=== PATIENT | male | born 1965 | race Caucasian/White ===

== ENCOUNTER 2021-07-22 08:30 | Emergency (ER) | payer MEDICAID, SELFPAY ==
[2021-07-22 08:40] VITALS: BP 185/119; PULSE 83; RESP 20; O2SAT 97; BMI 21.7
--- NOTE | 2021-07-22 08:56 | W.ED.GENADLT ---
Documented by User: ARSENIO Chowdhury 07/22/21 10:15 HPI - General Adult General: Chief complaint: General Medical Stated complaint: JAW & R SIDE HEAD PAIN Time Seen by Provider: 07/22/21 08:48 History of Present Illness: HPI narrative: Patient complains about dental pain. Says heat and cold bothers his lower molar area he has very poor teeth lots of caries and he has been told he needs to have them removed. Patient says it has been going on for about a week and is progressively got worse. He says blood pressure normally under good control. He was saw by Dr. Manzo last week and blood pressure evaluated and neck spasms also. Said neck spasms better but tooth is causing him considerable discomfort. MD complaint: Dental caries Onset (ago): day(s) Associated symptoms: Reports no associated symptoms; Deny chest pain, headache(s), rash or vomiting Review of Systems Const: Denies: fever(s), chills or body aches Eyes: Denies: eye discharge ENMT: Reports: dental pain; Denies: throat pain, oral sores or nasal congestion Card: Reports: other (History of hypertension controlled); Denies: chest pain or dyspnea on exertion Resp: Reports: non-productive cough; Denies: wheezing or stridor GI: Denies: vomiting or diarrhea : Denies: difficulty urinating Musc: Denies: extremity pain Skin/Breast: Denies: rash Neuro: Denies: headache(s) Psych: Denies: anxiety or depression Eliezer/Lymph: Denies: easy bruising Physical Exam Const: COMMON NORMALS: no acute distress GENERAL APPEARANCE: cooperative HENMT: COMMON NORMALS: TM's normal bilaterally and Normal external nose present FACE & SINUS: normal facial exam NOSE: Normal external nose present TYMPANIC MEMBRANE: TM's normal bilaterally MOUTH: Normal oral and palatal mucosa present TEETH & GINGIVA: Yes caries (Multiple throughout mouth, most teeth have black craters) and Yes other (Tender to right lower molar on the outer aspect no abscess) Neck/C-Spine: COMMON NORMALS: full ROM, no lymphadenopathy and supple Resp: COMMON NORMALS: normal respiratory effort Cardio: COMMON NORMALS: regular rate and regular rhythm RATE: regular rate RHYTHM: regular rhythm Psych: COMMON NORMALS: mental status grossly normal Course Vital Signs: Vital signs: Vital Signs Pulse Rate 79 07/22/21 09:07 Respiratory Rate 16 07/22/21 09:07 Blood Pressure 168/121 07/22/21 09:07 Pulse Oximetry 98 07/22/21 09:07 MDM - General Adult MDM Narrative: Medical decision making narrative: Patient presents with multiple dental caries. Has had right lower molar pain x1 week. Patient states that it has not improved and is worsening. Has had multiple problems with teeth over the years and cannot afford to get them pulled. And has severe anxiety related to Best. Blood pressure normally under good control and was just seen by Dr. Manzo last week. Patient states blood pressures up due to his teeth hurting. He declines any intervention for his hypertension. Patient states he has been up all night due to his pain and that is why his pressure is up and he said it was fine yesterday. Patient does not want any narcotics for pain control because of past problem with addiction. Denies any other current problems. Patient was given strict instructions to follow-up here or his primary care provider concerning his blood pressure if it does not come down to the what his normal pressure is. Patient agrees to plan. Discharge Plan Discharge Patient Disposition: Home Clinical Impression: Dental caries HTN (hypertension) Qualifiers: Hypertension type: primary hypertension Qualified Code(s): I10 - Essential (primary) hypertension Condition: Stable Prescriptions: New clindamycin HCl 300 mg capsule 300 mg PO Q8H 7 Days Qty: 21 RF: 0 Celebrex 100 mg capsule 100 mg PO BID Qty: 20 RF: 0 Discharge Orders: Discharge ED (Routine); Ordered 07/22/21 Ordered By: Blaine Gomez Referrals: Justin Manzo MD [Physician] - Discharge Diet: Usual diet Discharge Activity: Resume usual activity Patient Instructions: Dental Caries (Cavities), Chronic Hypertension (ED) Activity Restrictions/Additional Instructions: Follow-up with medical provider as directed. Take medications as prescribed. Return to the ER or your medical provider if condition worsens. Please read and understand discharge instructions. If any questions ask please. Try to establish with dentist as soon as possible to get teeth removed. Monitor blood pressure daily basis and continue take medication. Coding Level of Care Code ED Independent Living Specialist for Chg Fwd Exam Detailed Documented by User: Preston Dumont DO 07/22/21 14:15 HPI - General Adult General: Chief complaint: General Medical Stated complaint: JAW & R SIDE HEAD PAIN Time Seen by Provider: 07/22/21 08:48 Course Vital Signs: Vital signs: Vital Signs Pulse Rate 79 07/22/21 09:07 Respiratory Rate 16 07/22/21 09:07 Blood Pressure 168/121 07/22/21 09:07 Pulse Oximetry 98 07/22/21 09:07 MDM - General Adult MDM Narrative: Medical decision making narrative: Chart reviewed and patient discussed with midlevel. Agree with assessment and plan. Discharge Plan Discharge Patient Disposition: Home Clinical Impression: Dental caries HTN (hypertension) Qualifiers: Hypertension type: primary hypertension Qualified Code(s): I10 - Essential (primary) hypertension Condition: Stable Prescriptions: New clindamycin HCl 300 mg capsule 300 mg PO Q8H 7 Days Qty: 21 RF: 0 Celebrex 100 mg capsule 100 mg PO BID Qty: 20 RF: 0 Discharge Orders: Discharge ED (Routine); Ordered 07/22/21 Ordered By: Blaine Gomez Referrals: Justin Manzo MD [Physician] - Discharge Diet: Usual diet Discharge Activity: Resume usual activity Patient Instructions: Dental Caries (Cavities), Chronic Hypertension (ED) Activity Restrictions/Additional Instructions: Follow-up with medical provider as directed. Take medications as prescribed. Return to the ER or your medical provider if condition worsens. Please read and understand discharge instructions. If any questions ask please. Try to establish with dentist as soon as possible to get teeth removed. Monitor blood pressure daily basis and continue take medication. Coding Level of Care Code ED Independent Living Specialist for Chg Fwd Exam Detailed
[2021-07-22 09:06] VITALS: BP 168/121; PULSE 79; RESP 16; O2SAT 97
[2021-07-22 09:07] VITALS: BP 168/121; PULSE 79; RESP 16; O2SAT 98
--- NOTE | 2021-07-22 09:10 | PC.NURSE ---
INFORMED BABAR NICHOLS OF BP OF 168/121 VERBALIZED UNDERSTANDING AND VO TO CONTINUE WITH DC.
== END 2021-07-22 09:23 | disposition home or self-care (01) ==
LOC: ER 08:58
PROVIDERS: Emergency Provider Nurse Practitioner Family
DX: K02.9 Dental caries, unspecified (principal); I10 Essential (primary) hypertension
CPT/HCPCS: 99283

== ENCOUNTER 2022-01-26 11:07 | Emergency (ER) | payer MEDICAID, SELFPAY ==
[2022-01-26 11:14] VITALS: BP 139/89; PULSE 110; RESP 18; TEMP 36.6; O2SAT 97; BMI 20.3
--- NOTE | 2022-01-26 11:33 | XR_ITS ---
WS: [id number] Chest with left rib detail, 01/26/2022 Clinical Data: fall, rib pain Comparison: Portable chest, 06/02/2018. Findings: The lungs show no masses, or effusions. The heart is normal. No pneumonia or pneumothorax is seen. The 1 cm nodule in the midportion of the right lung has not changed. The ribs are intact. No rib fractures seen. No subcutaneous emphysema is present. XR/XR ribs LT mn 3V w CXR1V [id number] Impression: Negative chest with left rib detail.
--- NOTE | 2022-01-26 11:33 | XR_ITS ---
WS: [id number] Lumbar spine, 3 views, 01/26/2022 Clinical Data: fall pain Comparison: Lumbar spine, 06/18/2017. Findings: No compression fractures or subluxation is seen. No disc space narrowing is seen. The transverse proc esses and SI joints are normal. There are small osteophytes at L3-L5. XR/XR lumbar spine 2-3V* [id number] Impression: Minimal osteoarthritis at L3-L5.
[2022-01-26] MEDS: ketorolac 60 mg/2 mL INJ IM (12:33)
--- NOTE | 2022-01-26 12:51 | W.ED.FALL ---
HPI - Fall General: Chief Complaint: Fall Stated Complaint: back injury Time Seen by Provider: 01/26/22 12:19 Source: patient Mode of arrival: ambulatory Limitations: no limitations History of Present Illness: 56-year-old male presents emergency room with complaints of acute on chronic back pains manifesting on the left side today chronically has pain radiating to his legs he drinks alcohol on a regular basis he has been drinking more recently because he has severe difficulty with his . Denies any medic easy melena hematemesis coffee-ground emesis has been taking ibuprofen for the most part for his back he has had problems in the past that inducing an ulcer. Denies any dysuria urgency or frequency denies any hematuria. He did states he fell yesterday but not today and his back pain worsened this morning. He has been drinking heavily on a daily basis and has been increasing because of issues with his . MD complaint: fall Onset (ago): hour(s) Fall from: standing Fall witnessed: no Place fall occurred: home Loss of consciousness: None Prolonged down time: no Context: tripped/slipped and alcohol use Location of injury: back Associated symptoms-after fall: Reports confusion, difficulty walking, neck pain, numbness and short of breath; Denies abdominal pain, chest pain, headache(s), hematuria, lightheadedness or weakness Review of Systems Const: Denies: fever(s), chills, body aches, change in appetite, fatigue or malaise ENMT: Denies: throat pain, ear or mastoid pain, nasal discharge or nasal congestion Card: Denies: chest pain or lightheadedness Resp: Denies: dyspnea, productive cough or non-productive cough GI: Denies: abdominal pain : Denies: hematuria Musc: Reports: neck pain Skin/Breast: Denies: rash or pruritus Neuro: Reports: difficulty walking and confusion; Denies: headache(s) Physical Exam Const: GENERAL APPEARANCE: cooperative and comfortable ORIENTATION/CONSCIOUSNESS: Yes awake, Yes oriented to person, Yes oriented to place and Yes oriented to time HENMT: COMMON NORMALS: normocephalic, atraumatic and hearing grossly normal bilaterally HEAD & SCALP: normocephalic and atraumatic Eye: COMMON NORMALS: Equal, round and reactive pupils present, EOMs intact bilaterally, conjunctivae normal and no scleral icterus CONJUNCTIVA: Yes conjunctivae normal PUPIL: Yes Equal, round and reactive pupils present Neck/C-Spine: COMMON NORMALS: full ROM, no lymphadenopathy, supple and no JVD Lymph: LYMPHATIC: no lymphadenopathy noted and no lymphedema noted Resp: COMMON NORMALS: normal respiratory effort, No retractions, No use of accessory muscles and clear to auscultation bilaterally AUSCULTATION: clear to auscultation bilaterally Cardio: COMMON NORMALS: no JVD, regular rate, regular rhythm and No murmurs present (Cardio) RATE: regular rate RHYTHM: regular rhythm GI: COMMON NORMALS: Soft to palpation and No hepatosplenomegaly present AUSCULTATION: Yes normoactive bowel sounds PALPATION: Yes Soft to palpation, No Tenderness to palpation present (GI), No Guarding due to palpation present (GI) and Yes No hepatosplenomegaly present Extremity: COMMON NORMALS: normal to inspection, capillary refill normal, no clubbing, cyanosis or edema, no calf tenderness and no pedal edema Neuro: SENSORIUM/ORIENTATION: Yes oriented to person, Yes oriented to place and Yes oriented to time Skin: COMMON NORMALS: no rashes or lesions noted GENERAL SKIN EXAM: no rashes or lesions noted OTHER: No rash on the back in the area of concern. Course Vital Signs: Vital signs: Vital Signs Temperature 97.9 F 01/26/22 11:14 Pulse Rate 110 H 01/26/22 11:14 Respiratory Rate 18 01/26/22 11:14 Blood Pressure 139/89 01/26/22 11:14 Pulse Oximetry 97 01/26/22 11:14 MDM - Fall Medical Decision Making Treat conservatively with him we will start him on Celebrex. Also put him on a prednisone taper and muscle relaxers encourage abstinence from alcohol. Medical Records I reviewed the patient's medical records. Lab Data I reviewed the patient's lab results. Radiology Impressions Lumbar Spine X-Ray 01/26/22 11:33 Impression: Minimal osteoarthritis at L3-L5. Ribs X-Ray 01/26/22 11:33 Impression: Negative chest with left rib detail. Discharge Plan Discharge Patient Disposition: Home Clinical Impression: Acute exacerbation of chronic low back pain, Alcohol abuse Condition: Stable Prescriptions: New tizanidine 4 mg capsule 4 mg PO Q6H PRN (Reason: muscle spasticity) Qty: 20 0RF Rx Instructions: do not exceed 3 doses per 24 hrs prednisone 20 mg tablet 20 mg PO TID Qty: 15 0RF Rx Instructions: 1 p.o. 3 times daily x3 days, 1 p.o. twice daily x2 days, 1 p.o. daily x2 days Celebrex 200 mg capsule 200 mg PO DAILY Qty: 30 0RF No Action Celebrex 100 mg capsule 100 mg PO BID Qty: 20 0RF Discharge Orders: Discharge ED (Routine); Ordered 01/26/22 Ordered By: Preston Dumont Referrals: Justin Manzo MD [Primary Care Provider] - Discharge Diet: Usual diet Discharge Activity: Limit activity as instructed Patient Instructions: Opioid Safety Coding Level of Care Code ED Hoop Maker Helper Machine for Chg Fwd Exam Comprehensive
[2022-01-26] MEDS: orphenadrine 30 mg/mL Inj 2 mL 60 MG IM (13:06)
[2022-01-26] MEDS: dexamethasone 10 mg/mL INJ IM (13:06)
== END 2022-01-26 13:18 | disposition home or self-care (01) ==
PROVIDERS: Emergency Provider Family Medicine; PCP Family Medicine
DX: M54.50 Low back pain, unspecified (principal); G89.29 Other chronic pain; M79.605 Pain in left leg; M79.604 Pain in right leg; F10.10 Alcohol abuse, uncomplicated; Z91.81 History of falling; Z63.0 Problems in relationship with spouse or partner
CPT/HCPCS: 71101; 72100; 96372; 99283; J1100; J1885; J2360